=== PATIENT | male | born 1990 ===

== ENCOUNTER 2021-08-16 07:22 | Day surgery (SDC) | payer OTHER ==
[~2021-08-16] VITALS: Ht 180.3 cm; Wt 88.0 kg
[2021-08-16 08:13] VITALS: BP 98/64; PULSE 57; TEMP 97
[2021-08-16 09:25] VITALS: BP 101/63; PULSE 49; TEMP 97.1
--- NOTE | 2021-08-16 09:25 | NUR ---
PT arrived from procedure and was settled by Yin ARGUETA. Verbal room report then obatined. PT denies nausea. NO vomiting. PT served a warm muffin and a coke per request. PT oriented to room and call jean, within reach. Warm blankets provided.
[2021-08-16 09:40] VITALS: BP 110/83; PULSE 47
--- NOTE | 2021-08-16 09:40 | NUR ---
VSS. Call jean remains within reach.
--- NOTE | 2021-08-16 09:46 | NUR ---
PT has finished his muffin and coke. He continues to deny nausea. NO vomiting. VSS. PT expressed desire to be discharged. Call jean remains within reach. PT is contacting his ride.
[2021-08-16 09:55] VITALS: BP 103/59; PULSE 42
--- NOTE | 2021-08-16 09:55 | NUR ---
VSS. PT denies nausea. NO vomiting. Expressed desire to be discharged.
[2021-08-16 10:10] VITALS: BP 105/60; PULSE 53
--- NOTE | 2021-08-16 10:10 | NUR ---
VSS. IV discontinued. Catheter tip intact. Pressure dressing applied. NO redness or swelling noted. DC instructions and educational material reviewed with the PT who verbalized understanding and signed the realted paperwork. PT denied needing assistance changing into personal and voided after changing. Awaiting ride home. Call jean remains within reach.
--- NOTE | 2021-08-16 10:55 | NUR ---
PT dismissed from endo via wheelchair by Greer ARGUETA to the PT entrence. PT has DC packet and personal belongings and was transferred into the care of his friend, who is driving private car.
== END 2021-08-16 10:50 | disposition home or self-care (01) ==
LOC: SDCO 07:22
DX: R19.4 Change in bowel habit (principal); R19.7 Diarrhea, unspecified; K62.89 Other specified diseases of anus and rectum; K64.0 First degree hemorrhoids; K92.1 Melena; R14.0 Abdominal distension (gaseous); R10.84 Generalized abdominal pain
CPT/HCPCS: J2704; J7120